=== PATIENT | male | born 1955 | race Caucasian/White ===

== ENCOUNTER 2017-06-27 09:49 | Emergency (ER) | payer OTHER ==
[~2017-06-27] VITALS: Ht 175.3 cm; Wt 72.6 kg
[~2017-06-27 09:49] MED LIST: ACET650SUP PR; ALBU4 INH; AMLO10 PO; ASPI325; ASPI81EC PO; Acetaminophen325 M1 PO; BACI500TO BOTHEYES; BACL20 PO; BP MED; CALDYPHEN CLEA TP; CARV25 PO; CARV6.25 PO; CEPH500 PO; CYCL10 PO; DAPTOMYCIN IV; DIAZ5 PO; DOCU100 PT; Fruity C250 MG PO; GABA300; GABA300 PO; GLYCAS PR; HYDACE5; HYDACE5 PO; HYDACE5325 PO; HYDROCODON-ACET15 ML PT; HYDROCODONE PO; Humalog100 UNIT/1; IBUP600 PO; INS70/30I; INS70/30I SQ; INS70/30PN SUBQ; INSDET100 SC; INSDETPEN SC; INSULANI SC; INSULANI SUBQ; INSULANPEN; INSULIN SLIDING SCAL; LEVFLO500 PO; LEVO750 PO; METO10; Novolin R100 UNIT/M SC; OMEPRAZOLE MAGN20 MG PO; OXYACE5T PO; OXYC5 PO; Prevacid Soluta30 MG PT; RIFA300 PO; SULTRIDS PO; TAMS.4ER PO; TERA5 PO; VANC250 IV; ZINC15 PO; Zofran Odt4 MG SL; [UNRECOGNIZED DRUG - REMARK]
[2017-06-27] MEDS ORDERED: POTCHL10ER PO (10:13)
[2017-06-27] MEDS ORDERED: LISI5 PO (10:24)
[2017-10-10] MEDS ORDERED: Prinivil10 MG (10:10)
[2017-10-10] MEDS ORDERED: ALBU2.5V5 (10:10)
[2017-10-10] MEDS ORDERED: ASCO500 (10:10)
[2017-10-10] MEDS ORDERED: ACET325 (10:10)
[2017-10-10] MEDS ORDERED: Bacid1 EACH (10:11)
[2017-10-10] MEDS ORDERED: ZINC220 (10:11)
[2017-10-10] MEDS ORDERED: IBUP800 (10:11)
[2017-10-10] MEDS ORDERED: Omeprazole20 M1 (10:11)
[2017-10-10] MEDS ORDERED: Micro-K10 MEQ (10:11)
[2017-10-10] MEDS ORDERED: FURO40 (10:11)
[2017-11-25] MEDS ORDERED: BUME2 (14:12)
[2017-11-25] MEDS ORDERED: ASCO500 (14:13)
[2017-11-25] MEDS ORDERED: ALBU3IS (14:13)
[2017-11-25] MEDS ORDERED: ZINC220 (14:13)
[2018-03-25] MEDS ORDERED: Zofran Odt4 MG SL (15:05)
== END 2017-06-27 12:05 | disposition home or self-care (01) ==
LOC: ER 09:49
DX: Z43.4 Encounter for attention to other artificial openings of digestive tract (principal); I10 Essential (primary) hypertension; E11.9 Type 2 diabetes mellitus without complications; F17.200 Nicotine dependence, unspecified, uncomplicated; Z79.899 Other long term (current) drug therapy
CPT/HCPCS: 74018; 99283

== ENCOUNTER 2017-07-08 14:45 | Day surgery (SDC) | payer OTHER ==
[~2017-07-08] VITALS: Ht 175.3 cm; Wt 63.5 kg
[~2017-07-08 14:45] MED LIST changes: +LISI5 PO; +POTCHL10ER PO
[2017-10-10] MEDS ORDERED: ACET325 (10:10)
[2017-10-10] MEDS ORDERED: ALBU2.5V5 (10:10)
[2017-10-10] MEDS ORDERED: Prinivil10 MG (10:10)
[2017-10-10] MEDS ORDERED: ASCO500 (10:10)
[2017-10-10] MEDS ORDERED: FURO40 (10:11)
[2017-10-10] MEDS ORDERED: IBUP800 (10:11)
[2017-10-10] MEDS ORDERED: Micro-K10 MEQ (10:11)
[2017-10-10] MEDS ORDERED: ZINC220 (10:11)
[2017-10-10] MEDS ORDERED: Bacid1 EACH (10:11)
[2017-10-10] MEDS ORDERED: Omeprazole20 M1 (10:11)
[2017-11-25] MEDS ORDERED: BUME2 (14:12)
[2017-11-25] MEDS ORDERED: ALBU3IS (14:13)
[2017-11-25] MEDS ORDERED: ZINC220 (14:13)
[2017-11-25] MEDS ORDERED: ASCO500 (14:13)
[2018-03-25] MEDS ORDERED: Zofran Odt4 MG SL (15:05)
== END 2017-07-08 22:53 | disposition home or self-care (01) ==
LOC: ORSCMMR 14:45
PROVIDERS: Internal Medicine Gastroenterology
PROC: 0D738ZZ Dilation of Lower Esophagus, Via Natural or Artificial Opening Endoscopic (ICD-10-PCS; principal; 2017-07-08 16:45)
DX: K94.23 Gastrostomy malfunction (principal); K22.2 Esophageal obstruction; K22.10 Ulcer of esophagus without bleeding; I10 Essential (primary) hypertension; E10.9 Type 1 diabetes mellitus without complications; J44.9 Chronic obstructive pulmonary disease, unspecified; Z79.899 Other long term (current) drug therapy
CPT/HCPCS: 82947; C1726; J7120

== ENCOUNTER 2017-08-19 12:32 | Emergency (ER) | payer OTHER ==
[~2017-08-19] VITALS: Ht 175.3 cm; Wt 63.5 kg
[2017-08-19 17:14] LABS: BASOPHILS ABSOLUTE AUTO 0.04 K/mm3 (0.00-0.23); BASOPHILS PERCENT AUTO 1 % (0-2); EOSINOPHILS ABSOLUTE AUTO 0.38 K/mm3 (0.00-0.68); EOSINOPHILS PERCENT AUTO 6 % (0-6); Hematocrit 34.1 % (37.0-53.0); Hemoglobin 10.7 g/dL (13.5-17.5); IMMATURE GRAN ABSOLUTE AUTO 0.02 K/mm3 (0.00-0.10); IMMATURE GRAN PERCENT AUTO 0 % (0-1); LYMPHOCYTES ABSOLUTE AUTO 1.26 K/mm3 (0.84-5.20); LYMPHOCYTES PERCENT AUTO 20 % (21-46); MONOCYTES ABSOLUTE AUTO 0.71 K/mm3 (0.16-1.47); MONOCYTES PERCENT AUTO 11 % (4-13); Mean Corpuscular HGB 27.3 pg (26.0-34.0); Mean Corpuscular HGB Conc 31.4 g/dL (31.5-36.5); Mean Corpuscular Volume 87 fL (80-100); Mean Platelet Volume 11.1 fL (9.1-12.4); NEUTROPHILS ABSOLUTE AUTO 3.93 K/mm3 (1.96-9.15); NEUTROPHILS PERCENT AUTO 62 % (41-73); Platelet Count 263 K/mm3 (150-400); RDW Coefficient Variation 14.6 % (11.7-14.2); RDW Standard Deviation 46.9 fL (35.1-46.3); Red Blood Cell Count 3.92 M/mm3 (4.30-5.90); White Blood Cell Count 6.34 K/mm3 (4.00-11.30)
[2017-08-19 17:42] LABS: Alanine Aminotransfer (ALT/SGP 15 U/L (12-78); Albumin, Blood 3.3 g/dL (3.4-5.0); Albumin/Globulin Ratio 0.6 (0.8-1.8); Alk Phos 92 U/L (50-136); Anion Gap 7 mmol/L (6-16); Aspartate Aminotrans (AST/SGOT 13 U/L (12-37); Bilirubin, Total 0.4 mg/dL (0.1-1.0); Blood Urea Nitrogen 15 mg/dL (8-24); Bun/Creatinine Ratio 23.3 (12.0-20.0); CO2, Blood 28 mmol/L (21-32); Chloride, Blood 105 mmol/L (98-108); Creatinine, Blood 0.64 mg/dL (0.60-1.20); Globulin, Blood 5.2 g/dL (2.2-4.0); Glomerular Filtration Rate >60 (60-); Glucose, Blood 96 mg/dL (70-99); Potassium, Blood 3.8 mmol/L (3.5-5.5); Sodium, Blood 140 mmol/L (136-145); Total Protein, Blood 8.5 g/dL (6.4-8.2)
[2017-08-19] MEDS ORDERED: (None)15 GM EXT (20:43)
[2017-10-10] MEDS ORDERED: ASCO500 (10:10)
[2017-10-10] MEDS ORDERED: ALBU2.5V5 (10:10)
[2017-10-10] MEDS ORDERED: ACET325 (10:10)
[2017-10-10] MEDS ORDERED: Prinivil10 MG (10:10)
[2017-10-10] MEDS ORDERED: FURO40 (10:11)
[2017-10-10] MEDS ORDERED: Bacid1 EACH (10:11)
[2017-10-10] MEDS ORDERED: IBUP800 (10:11)
[2017-10-10] MEDS ORDERED: Omeprazole20 M1 (10:11)
[2017-10-10] MEDS ORDERED: ZINC220 (10:11)
[2017-10-10] MEDS ORDERED: Micro-K10 MEQ (10:11)
[2017-11-25] MEDS ORDERED: BUME2 (14:12)
[2017-11-25] MEDS ORDERED: ASCO500 (14:13)
[2017-11-25] MEDS ORDERED: ZINC220 (14:13)
[2017-11-25] MEDS ORDERED: ALBU3IS (14:13)
[2018-03-25] MEDS ORDERED: Zofran Odt4 MG SL (15:05)
== END 2017-08-19 21:02 | disposition home or self-care (01) ==
LOC: ER 12:32
PROVIDERS: Physician Assistant
DX: K94.23 Gastrostomy malfunction (principal); Z79.899 Other long term (current) drug therapy; E11.9 Type 2 diabetes mellitus without complications; I10 Essential (primary) hypertension; Z87.891 Personal history of nicotine dependence
CPT/HCPCS: 36415; 43760; 74018; 80053; 85025; 99283; Q9963

== ENCOUNTER 2017-10-16 13:44 | Day surgery (SDC) | payer OTHER ==
[~2017-10-16] VITALS: Ht 175.3 cm; Wt 80.0 kg
[~2017-10-16 13:44] MED LIST changes: +(None)15 GM EXT; +ACET325; +ALBU2.5V5; +ASCO500; +Bacid1 EACH; +FURO40; +IBUP800; +Micro-K10 MEQ; +Omeprazole20 M1; +Prinivil10 MG; +ZINC220
== END 2017-10-16 15:10 | disposition home or self-care (01) ==
LOC: ORSCSDS 13:44
PROVIDERS: Internal Medicine Gastroenterology
PROC: 0D758ZZ Dilation of Esophagus, Via Natural or Artificial Opening Endoscopic (ICD-10-PCS; principal; 2017-10-16 14:30)
DX: K22.2 Esophageal obstruction (principal); K22.70 Barrett's esophagus without dysplasia; K44.9 Diaphragmatic hernia without obstruction or gangrene; E11.9 Type 2 diabetes mellitus without complications; E87.6 Hypokalemia; K21.9 Gastro-esophageal reflux disease without esophagitis; Z87.891 Personal history of nicotine dependence; Z79.899 Other long term (current) drug therapy
CPT/HCPCS: 82947; C1726

== ENCOUNTER 2017-12-02 10:42 | Day surgery (SDC) | payer MEDICARE ==
[~2017-12-02] VITALS: Ht 175.3 cm; Wt 80.7 kg
[~2017-12-02 10:42] MED LIST changes: +ALBU3IS; +BUME2
== END 2017-12-02 12:55 | disposition home or self-care (01) ==
LOC: ORSCSDS 10:42
PROVIDERS: Internal Medicine Gastroenterology
PROC: 0D758ZZ Dilation of Esophagus, Via Natural or Artificial Opening Endoscopic (ICD-10-PCS; principal; 2017-12-02 12:15)
DX: R13.10 Dysphagia, unspecified (principal); K22.2 Esophageal obstruction; K22.70 Barrett's esophagus without dysplasia; Z87.891 Personal history of nicotine dependence; E11.9 Type 2 diabetes mellitus without complications; Z79.899 Other long term (current) drug therapy
CPT/HCPCS: 82947; C1726; J7120

== ENCOUNTER 2018-01-02 11:39 | Inpatient (IN) | payer MEDICARE ==
[~2018-01-02] VITALS: Ht 175.3 cm; Wt 74.2 kg
[~2018-01-02 11:39] MED LIST changes: -ACET325 PO; -BUME2 PO; -Humalog100 UNIT/3 SC; -MUPI1NAS TOP; -Omeprazole20 M1 PO; -Prinivil10 MG PO; -ROXICODONE5 MG PO
[2018-01-02 12:45] LABS: BASOPHILS ABSOLUTE AUTO 0.04 K/mm3 (0.00-0.23); BASOPHILS PERCENT AUTO 1 % (0-2); EOSINOPHILS ABSOLUTE AUTO 0.33 K/mm3 (0.00-0.68); EOSINOPHILS PERCENT AUTO 5 % (0-6); IMMATURE GRAN ABSOLUTE AUTO 0.03 K/mm3 (0.00-0.10); IMMATURE GRAN PERCENT AUTO 0 % (0-1); LYMPHOCYTES PERCENT AUTO 16 % (21-46); MONOCYTES ABSOLUTE AUTO 0.72 K/mm3 (0.16-1.47); MONOCYTES PERCENT AUTO 10 % (4-13); Mean Corpuscular HGB 25.1 pg (26.0-34.0); Mean Corpuscular Volume 84 fL (80-100); Mean Platelet Volume 10.6 fL (9.1-12.4); NEUTROPHILS PERCENT AUTO 68 % (41-73); Platelet Count 250 K/mm3 (150-400); RDW Coefficient Variation 14.9 % (11.7-14.2); RDW Standard Deviation 45.5 fL (35.1-46.3); Red Blood Cell Count 3.59 M/mm3 (4.30-5.90); White Blood Cell Count 6.92 K/mm3 (4.00-11.30)
[2018-01-02 13:03] LABS: Alanine Aminotransfer (ALT/SGP 9 U/L (12-78); Albumin, Blood 2.6 g/dL (3.4-5.0); Albumin/Globulin Ratio 0.4 (0.8-1.8); Alk Phos 73 U/L (50-136); Anion Gap 7 mmol/L (6-16); Aspartate Aminotrans (AST/SGOT 7 U/L (12-37); Bilirubin, Total 0.3 mg/dL (0.1-1.0); Blood Urea Nitrogen 11 mg/dL (8-24); Bun/Creatinine Ratio 14.9 (12.0-20.0); CO2, Blood 30 mmol/L (21-32); Calcium, Blood 8.8 mg/dL (8.5-10.1); Chloride, Blood 104 mmol/L (98-108); Creatinine, Blood 0.74 mg/dL (0.60-1.20); Globulin, Blood 5.8 g/dL (2.2-4.0); Glomerular Filtration Rate >60 (60-); Glucose, Blood 123 mg/dL (70-99); Potassium, Blood 3.7 mmol/L (3.5-5.5); Sodium, Blood 141 mmol/L (136-145); Total Protein, Blood 8.4 g/dL (6.4-8.2)
[2018-01-02] MEDS ORDERED: BUME2 PO (14:53)
[2018-01-02] MEDS ORDERED: Omeprazole20 M1 PO (14:57)
[2018-01-02] MEDS ORDERED: Prinivil10 MG PO (14:57)
[2018-01-03 04:57] LABS: Hematocrit 27.8 % (37.0-53.0); Hemoglobin 8.4 g/dL (13.5-17.5); Mean Corpuscular HGB 24.9 pg (26.0-34.0); Mean Corpuscular HGB Conc 30.2 g/dL (31.5-36.5); Mean Corpuscular Volume 82 fL (80-100); Mean Platelet Volume 10.8 fL (9.1-12.4); Platelet Count 223 K/mm3 (150-400); RDW Standard Deviation 44.4 fL (35.1-46.3); Red Blood Cell Count 3.38 M/mm3 (4.30-5.90); White Blood Cell Count 6.69 K/mm3 (4.00-11.30)
[2018-01-03 05:27] LABS: Anion Gap 6 mmol/L (6-16); Blood Urea Nitrogen 10 mg/dL (8-24); Bun/Creatinine Ratio 12.7 (12.0-20.0); CO2, Blood 32 mmol/L (21-32); Calcium, Blood 8.2 mg/dL (8.5-10.1); Chloride, Blood 101 mmol/L (98-108); Creatinine, Blood 0.79 mg/dL (0.60-1.20); Glomerular Filtration Rate >60 (60-); Glucose, Blood 167 mg/dL (70-99); Potassium, Blood 3.7 mmol/L (3.5-5.5); Sodium, Blood 139 mmol/L (136-145)
[2018-01-04 05:15] LABS: Albumin, Blood 2.3 g/dL (3.4-5.0); Anion Gap 7 mmol/L (6-16); Blood Urea Nitrogen 9 mg/dL (8-24); Bun/Creatinine Ratio 12.5 (12.0-20.0); CO2, Blood 31 mmol/L (21-32); Calcium, Blood 8.5 mg/dL (8.5-10.1); Chloride, Blood 100 mmol/L (98-108); Creatinine, Blood 0.72 mg/dL (0.60-1.20); Glomerular Filtration Rate >60 (60-); Glucose, Blood 187 mg/dL (70-99); Sodium, Blood 138 mmol/L (136-145)
[2018-01-04 12:14] LABS: Vancomycin, Trough 17.3 ug/mL (5.0-10.0)
[2018-01-05 04:14] LABS: BASOPHILS ABSOLUTE AUTO 0.04 K/mm3 (0.00-0.23); BASOPHILS PERCENT AUTO 0 % (0-2); EOSINOPHILS ABSOLUTE AUTO 0.16 K/mm3 (0.00-0.68); EOSINOPHILS PERCENT AUTO 2 % (0-6); Hemoglobin 9.1 g/dL (13.5-17.5); IMMATURE GRAN ABSOLUTE AUTO 0.02 K/mm3 (0.00-0.10); IMMATURE GRAN PERCENT AUTO 0 % (0-1); LYMPHOCYTES ABSOLUTE AUTO 0.89 K/mm3 (0.84-5.20); LYMPHOCYTES PERCENT AUTO 9 % (21-46); MONOCYTES PERCENT AUTO 10 % (4-13); Mean Corpuscular HGB 24.5 pg (26.0-34.0); Mean Corpuscular HGB Conc 30.3 g/dL (31.5-36.5); Mean Corpuscular Volume 81 fL (80-100); Mean Platelet Volume 10.2 fL (9.1-12.4); NEUTROPHILS ABSOLUTE AUTO 8.32 K/mm3 (1.96-9.15); NEUTROPHILS PERCENT AUTO 80 % (41-73); Platelet Count 229 K/mm3 (150-400); RDW Standard Deviation 43.8 fL (35.1-46.3); Red Blood Cell Count 3.71 M/mm3 (4.30-5.90); White Blood Cell Count 10.43 K/mm3 (4.00-11.30)
[2018-01-05 04:31] LABS: Anion Gap 7 mmol/L (6-16); Blood Urea Nitrogen 12 mg/dL (8-24); Bun/Creatinine Ratio 13.4 (12.0-20.0); CO2, Blood 30 mmol/L (21-32); Calcium, Blood 8.2 mg/dL (8.5-10.1); Chloride, Blood 102 mmol/L (98-108); Glomerular Filtration Rate >60 (60-); Glucose, Blood 124 mg/dL (70-99); Potassium, Blood 4.2 mmol/L (3.5-5.5); Sodium, Blood 139 mmol/L (136-145)
[2018-01-05 12:53] LABS: Vancomycin, Trough 19.9 ug/mL (5.0-10.0)
[2018-01-06] MEDS ORDERED: ACET325 PO (09:33)
[2018-01-06] MEDS ORDERED: Humalog100 UNIT/3 SC (09:39)
[2018-01-06] MEDS ORDERED: MUPI1NAS TOP (09:41)
[2018-01-06] MEDS ORDERED: ROXICODONE5 MG PO (09:42)
== END 2018-01-06 15:28 | DRG 617 ==
LOC: ER 11:39 → MEDS 12:19 → SURS 12:19 → MEDS 15:54 → SURS 01-04 12:11
PROVIDERS: Emergency Medicine; Internal Medicine; Orthopaedic Surgery; Pharmacist
PROC: 0Y6J0Z1 Detachment at Left Lower Leg, High, Open Approach (ICD-10-PCS; principal; 2018-01-04 10:30)
DX: E11.621 Type 2 diabetes mellitus with foot ulcer (principal); E11.52 Type 2 diabetes mellitus with diabetic peripheral angiopathy with gangrene; L97.526 Non-pressure chronic ulcer of other part of left foot with bone involvement without evidence of necrosis; I96 Gangrene, not elsewhere classified; E11.22 Type 2 diabetes mellitus with diabetic chronic kidney disease; I12.9 Hypertensive chronic kidney disease with stage 1 through stage 4 chronic kidney disease, or unspecified chronic kidney disease; N18.3 Chronic kidney disease, stage 3 (moderate); Z79.4 Long term (current) use of insulin; K21.9 Gastro-esophageal reflux disease without esophagitis; J44.9 Chronic obstructive pulmonary disease, unspecified
CPT/HCPCS: 36415; 73630; 80048; 80053; 80069; 80202; 82947; 83605; 85025; 85027; 86850; 86900; 86901; 87040; 87081; 88307; 93925; 93971; 94760; 96365; 96367; 96375; 97110; 97162; 97530; 99285-25; G8978; G8979; J0690; J1650; J1885; J2370; J2405; J2543; J2710; J2765; J3010; J3370; J3480; J7030; J7120

== ENCOUNTER → 2018-01-02 | Outpatient (CLI) | payer MEDICARE ==
[~2018-01-02] MED LIST changes: +ACET325 PO; +BUME2 PO; +Humalog100 UNIT/3 SC; +MUPI1NAS TOP; +Omeprazole20 M1 PO; +Prinivil10 MG PO; +ROXICODONE5 MG PO
== END ==
LOC: LAB SHORT 11:33 → LAB 11:33
DX: E10.621 Type 1 diabetes mellitus with foot ulcer (principal); E10.9 Type 1 diabetes mellitus without complications; L97.509 Non-pressure chronic ulcer of other part of unspecified foot with unspecified severity
CPT/HCPCS: 87070; 87077; 87186; 87205